=== PATIENT | female | born 1975 | race African-American/Black ===

== ENCOUNTER 2016-05-12 14:20 | Emergency (ER) | payer OTHER ==
--- NOTE | ~2016-05-12 | CO ---
Unit #: [id number] #: [id number] Patient: [id number] [address] [address] [id number] MR#: [id number] NAME: JOSEJune. ROOM: Age: 40 Sex: F Admission Date: 05/12/2016 : 1975 Attending Physician: Indu Felix M.D. CONSULTATION REPORT HISTORY OF PRESENT ILLNESS A 40-year-old female with 2-day history of sharp, constant right-sided abdominal pain with associated nausea. No emesis. No gross hematuria. No dysuria. History of UTIs in the past, but none recently. No history of stone disease, bone pain, weight loss, or tobacco use. CT without contrast; questionable hemorrhagic cyst. PAST MEDICAL HISTORY As above. PAST SURGICAL HISTORY x2, tubal ligation, endometrial ablation. ALLERGIES No known drug allergies. MEDICATIONS Nothing regularly. SOCIAL HISTORY Occasional alcohol. No recreational drugs or tobacco. FAMILY HISTORY Ovarian cancer. REVIEW OF SYSTEMS The patient denies headache, vision change, hearing change, cough, sore throat, chest pain, or shortness of breath. Denies diarrhea, constipation, numbness or tingling in the extremities, rashes, or easy bruising. PHYSICAL EXAMINATION VITAL SIGNS: Temperature 98.6, respirations 16, pulse 54, blood pressure 146/79. GENERAL: In mild distress. HEENT: Normocephalic, atraumatic. Extraocular muscles intact grossly. NECK: Soft, supple. No supraclavicular lymphadenopathy. RESPIRATORY: Normal respiratory effort. Normal to palpation. ABDOMEN: Soft. Tender to palpation on the right side diffusely. No peritoneal signs. No CVA tenderness. EXTREMITIES: Full range of motion. No edema in bilateral lower extremities. PSYCHIATRIC: Mild distress. NEUROLOGIC: Cranial nerves II through XII grossly intact. Unit #: [id number] #: [id number] Patient: JOSE DIAGNOSTIC STUDIES LABORATORY RESULTS: Reveals creatinine 0.6. White blood cell count 12.7, hemoglobin 13.3. Urinalysis; 50 to 100 red blood cells per high-power field, 0 to 2 white blood cells per high-power field, negative bacteria. ASSESSMENT AND PLAN Renal mass, right; flank pain, right; microhematuria. Recommend contrast CAT scan. Recommendations to follow. We will need eventual cystoscopy given microhematuria. Dictated by... Jaren Lay/enrique TD: 05/13/2016 08:11 JOB #: [id number] CONSULTATION REPORT X Kush Goldsmith MD X CONSULTATION REPORT
--- NOTE | ~2016-05-12 | CT2 ---
[facility] A Service of [facility] RADIOLOGY TEXT RESULTS PATIENT: JOSE LOCATION: [facility] : [birth year] UNIT #: [id number] AGE: [address]: Indu Felix MD SEX: F ORDER DR: [id number] [facility] [address] [place], [place] [address] [id number] E MR#: [id number] Acc #: [id number] NAME: JOSE June. : 1975 SEX: F STUDY DATE/TIME: 05/12/2016 17:33 UNIT: [facility] ROOM: STUDY DESCRIPTION: CT Abd and Pelv W Cont Attending Physician: Indu Felix M.D. Ordering Physician: Indu Felix M.D. Primary Care Physician: Primary Care Physician No MEDICAL IMAGING REPORT This report is preliminary unless electronic signature is present EXAM CT abdomen and pelvis with contrast, 05/12/2016 HISTORY 40-year-old female with abdominal pain and nausea x1 day, pain radiating to right side of back. COMPARISON CT abdomen and pelvis without contrast 05/12/2016 obtained at [address] exam was performed with one or more of the following radiation dose reduction techniques: automatic exposure control, adjustment of mA and/or kV according to patient size, and iterative reconstruction. FINDINGS Axial images performed through the abdomen and pelvis following IV contrast. Multiplanar reconstructed images reviewed at a workstation. ABDOMEN: Lung bases unremarkable except for minimal atelectasis. The liver, spleen, gallbladder, pancreas and adrenal glands are unremarkable. There is a 6.4 cm low-attenuation lesion on the right kidney which demonstrates areas of increased attenuation most compatible with hemorrhage within a right renal cyst. No enhancing components are identified to suggest a solid tumor. There is probable a small right renal cortical cysts and a small cortical cyst lower pole right kidney. The left kidney also demonstrates a small cyst. No hydronephrosis. Retroperitoneum unremarkable. GI tract appears normal. PELVIS: Bladder, uterus, and adnexa appear normal. Osseous structures and soft tissues appear normal. [facility] A Service of [facility] RADIOLOGY TEXT RESULTS PATIENT: JOSE [id number] : [birth year] UNIT #: [id number] AGE: [address]: Indu Felix MD SEX: F ORDER DR: IMPRESSION A 6.5 cm right renal cortical cyst with areas of increased attenuation within the cyst most likely reflecting acute hemorrhage. No solid components are identified to suggest a solid renal neoplasm. There are also multiple bilateral renal cysts. Dictated by... Yenny Everett M.D. THIS IS AN ELECTRONICALLY VERIFIED REPORT Yenny Everett M.D. at 05/13/2016 5:04 PM RADHA/brian TD: 05/13/2016 04:39 JOB #: [id number] MEDICAL IMAGING REPORT COPY
--- NOTE | ~2016-05-12 | CT4 ---
[facility] A Service of [facility] RADIOLOGY TEXT RESULTS PATIENT: JOSE LOCATION: [facility] : [birth year] UNIT #: [id number] AGE: [address]: Indu Felix MD SEX: F ORDER DR: [id number] [facility] [address] [place], [place] [address] [id number] E MR#: [id number] Acc #: [id number] NAME: JOSE June. : 1975 SEX: F STUDY DATE/TIME: 05/12/2016 15:11 UNIT: [facility] ROOM: STUDY DESCRIPTION: CT Abd and Pelv Wo Cont Attending Physician: Indu Felix M.D. Ordering Physician: Indu Felix M.D. Primary Care Physician: Primary Care Physician No MEDICAL IMAGING REPORT This report is preliminary unless electronic signature is present EXAM CT abdomen and pelvis without contrast, 05/12/2016 HISTORY Abdominal pain and nausea x1 day, pain radiating to right side. TECHNIQUE This CT exam was performed with one or more of the following radiation dose reduction techniques: automatic exposure control, adjustment of mA and/or kV according to patient size, and iterative reconstruction. FINDINGS Axial images performed through the abdomen and pelvis without contrast. Multiplanar reconstructed images were reviewed at a workstation. ABDOMEN: Lung bases unremarkable. Liver, spleen and gallbladder appear normal. There is a round complex mass in the upper pole of the right kidney measuring 6.4 cm x 6.4 cm x 6.5 cm. This is predominately hypodense relative to renal parenchyma but does demonstrate areas of increased attenuation compatible with acute hemorrhage. This most likely represents a hemorrhagic cyst within the right kidney, however urologic follow up and evaluation is recommended to exclude and underlying mass lesion. There are additional punctate calcifications in the right kidney with a subtle area decreased attenuation in the mid polar region of the right kidney. No hydronephrosis. No perinephric fluid collection identified. The left kidney unremarkable except for a small parenchymal hypodensity probably represents a cyst measuring about 1.8 cm. Retroperitoneum unremarkable. Visualized GI tract to include the appendix normal. PELVIS: Bladder, uterus and adnexa appear normal. Tubal ligation clips noted. Osseous structures and soft tissues appear normal. [facility] A Service of [facility] RADIOLOGY TEXT RESULTS PATIENT: JOSEJune LOCATION: [facility] : 73 UNIT #: [id number] AGE: [address]: Indu Felix MD SEX: F ORDER DR: IMPRESSION 1. Approximately 6.5 cm round mass within the upper pole of the right kidney which shows areas of increased attenuation compatible with acute hemorrhage. Imaging features most compatible with an acute hemorrhagic cyst however a solid neoplasm cannot be excluded and further urologic followup and evaluation is recommended. No intraperitoneal fluid and no extension of hemorrhage into the retroperitoneal structures or perinephric region. 2. Additional low-attenuation lesion seen within the right and left kidneys also most likely represent small cysts. Dictated by... Yenny Everett M.D. THIS IS AN ELECTRONICALLY VERIFIED REPORT Yenny Everett M.D. at 05/13/2016 5:02 PM RADHA/brian TD: 05/13/2016 00:11 JOB #: [id number] MEDICAL IMAGING REPORT COPY
[2016-05-12 13:20] LABS: BASOPHIL% 0.2 % (0-2.5); EOSINOPHIL% 0.3 % (0.0-7.0); HEMATOCRIT 39.6 % (35.0-45.0); HEMOGLOBIN 13.3 gm/dL (12.0-16.0); LYMPHOCYTE# 1.1 X10e3 (1.0-3.5); LYMPHOCYTE% 8.6 % (17.0-45.0); MEAN CELL VOLUME 91.2 FL (83-96); MEAN CORPUSCULAR HEMOGLOBIN 30.6 PG (28-34); MEAN CORPUSCULAR HGB CONC 33.6 g/dL (30-36); MEAN PLATELET VOLUME 7.8 FL (6.5-11.5); MONOCYTE# 0.6 X10e3 (0-1.0); MONOCYTE% 5.1 % (3.0-12.0); NEUTROPHIL# 10.9 X10e3 (1.5-7.1); NEUTROPHIL% 85.8 % (40-75); PLATELET COUNT 371 X10e3 (140-420); RED BLOOD COUNT 4.34 X10e (3.90-5.30); RED CELL DISTRIBUTION WIDTH 13.1 % (11.0-15.5); WHITE BLOOD COUNT 12.7 X10e3 (4.0-10.5)
[2016-05-12 13:21] LABS: DIFF IND NO
[2016-05-12 13:45] LABS: ALBUMIN SERUM 4.3 g/dL (3.5-5.0); ALKALINE PHOSPHATASE 37 U/L (32-92); ALT (SGPT) 15 U/L (10-40); AST (SGOT) 19 U/L (10-42); BILIRUBIN, DIRECT 0.1 mg/dL (0.0-0.2); BILIRUBIN,INDIRECT 0.4 mg/dL (0.0-0.9); BILIRUBIN,TOTAL 0.5 mg/dL (0.2-2.0); BLOOD UREA NITROGEN 7 mg/dL (9-23); BUN/CREATININE RATIO 11.66; CALCIUM SERUM 9.2 mg/dL (8.4-10.2); CARBON DIOXIDE 27 mmol/L (22-31); CHLORIDE 101 mmol/L (100-111); CREATININE SERUM 0.6 mg/dL (0.6-1.4); GLOM FILT RATE Estimated ABOVE60 mL/min (>60); GLUCOSE FASTING 120 mg/dL (70-110); LIPASE 19 U/L (22-51); POTASSIUM 3.7 mmol/L (3.5-5.1); PROTEIN TOTAL SERUM 7.3 g/dL (6.0-8.3); SODIUM 136 mmol/L (135-145)
[~2016-05-12 14:20] MED LIST: BACTRIM DS TABL1 TAB PO; DARVOCET-N 1001 TAB PO; FLAGYL PO; FLEXERIL PO; IBUPROFEN PO; KEFLEX PO; NAPROXEN PO; NORCO 5/325 TAB1 TAB PO; ORUDIS75 M1 PO; VICODIN 5/500 T1 TAB PO
[2016-05-12 14:54] LABS: URINE SOURCE CLEAN CATCH
[2016-05-12 14:59] LABS: URINE APPEARANCE CLEAR; URINE BILIRUBIN NEG (NEG); URINE BLOOD 3+ (NEG); URINE COLOR YELLOW; URINE GLUCOSE NEG (NEG); URINE KETONE NEG (NEG); URINE LEUKOCYTE ESTERASE NEG (NEG); URINE NITRATE NEG (NEG); URINE PH 6.5 (5-8); URINE PROTEIN TRACE (NEG); URINE SPECIFIC GRAVITY 1.013 (1.003-1.035); URINE UROBILINOGEN 0.2 MG/DL (NEG)
[2016-05-12 15:01] LABS: URBCS1 AUWI 50-100 /[HPF] (0-2); URINE BACTERIA AUWI NEG (NEGATIVE); URINE SQUAMOUS EPITHELIAL CELL OCC /[HPF]; UWBCS1 AUWI 0-2 (0-5)
[2016-05-12 15:02] LABS: CULTURE INDICATED? NO
[2016-05-16 20:31] LABS: CHLAMYDIA TRACH Not Detected (Not Detected); N GONOR Not Detected (Not Detected)
== END 2016-05-12 19:45 | disposition home or self-care (01) ==
LOC: CED 14:20
PROVIDERS: Emergency Medicine
DX: N28.1 Cyst of kidney, acquired (principal); R10.2 Pelvic and perineal pain; F17.200 Nicotine dependence, unspecified, uncomplicated
CPT/HCPCS: 36415; 74176; 74177; 80048; 80076; 81003; 83690; 85025; 87491; 87591; 87905; 96361; 96374; 96375; 96376; 99284; J0696; J1170; J2405; Q9967

== ENCOUNTER 2016-05-14 11:10 | Inpatient (IN) | payer OTHER ==
--- NOTE | ~2016-05-14 | MR2 ---
[facility] A Service of [facility] RADIOLOGY TEXT RESULTS PATIENT: JOSE LOCATION: [facility] [id number] : 73 UNIT #: [id number] AGE: [address]: Seun Ramos MD SEX: F ORDER DR: [id number] [address] [facility] [place], [place] [address] [id number] I MR#: [id number] Acc #: [id number] NAME: JOSE June. : 1975 SEX: F STUDY DATE/TIME: 05/15/2016 12:10 UNIT: [facility] ROOM: [facility] STUDY DESCRIPTION: MR Abdomen WWo Cont Attending Physician: Seun Ramos M.D. Ordering Physician: Seun Ramos M.D. Primary Care Physician: No Primary Care Physician MRI CENTER REPORT This report is preliminary unless electronic signature is present. EXAM MRI abdomen with and without contrast INDICATIONS Indeterminate right renal mass on recent CT. PROCEDURE Multiplanar, multisequence MR imaging of the abdomen prior to and following 19 mL of MultiHance. COMPARISON CT from 05/12/2016 FINDINGS Liver measures 20.7 cm. No significant hepatic fat or iron deposition. The spleen adrenal glands gallbladder biliary system bowel loops have normal signal. There is a 5 mm cyst in the head of the pancreas. Pancreas otherwise has normal signal. ABDOMEN WITH CONTRAST: A complex cystic lesion in the upper pole of the right kidney measures approximately 5.5 cm. It shows a few internal septations that are thin. It does show internal hemorrhage or proteinaceous material. No suspicious internal enhancing elements. There are other cysts in both kidneys, that are simple in appearance. No abnormal enhancement is seen elsewhere in the abdomen. The small pancreatic cyst shows no enhancement. IMPRESSION 1. A complex cyst in the upper pole of the right kidney has a few thin enhancing septations and proteinaceous or hemorrhagic internal material. No suspicious enhancing elements. Most in keeping with a [facility] A Service [facility] RADIOLOGY TEXT RESULTS PATIENT: JOSE LOCATION: [facility] : 73 UNIT #: [id number] AGE: [address]: Seun Ramos MD SEX: F ORDER DR: complex proteinaceous or hemorrhagic cyst. Given the internal complexity a followup in 6 months, may be beneficial. 2. Other benign simple cysts are seen in both kidneys. 3. A 5 mm, probably benign cyst in the head of the pancreas. Per the ACR white paper on incidental findings, recommend a followup MRCP in 12 months. If it is stable at that time no additional followup is required. 4. Hepatomegaly Dictated by... Lenin Saiin M.D. THIS IS AN ELECTRONICALLY VERIFIED REPORT Lenin Saini M.D. at 05/15/2016 5:05 PM ANKUR/reuben TD: 05/15/2016 15:20 JOB #: [id number] MRI CENTER REPORT COPY
--- NOTE | ~2016-05-14 | DS ---
Unit #: [id number] #: [id number] Patient: JOSEJune [id number] [address] [address] [id number] I MR#: [id number] NAME: SWATI GARCIA. ROOM: 467 Age: 40 Sex: F Admission Date: 05/14/2016 : 1975 Discharge Date: 05/25/2016 Attending Physician: Seun Ramos M.D. DISCHARGE SUMMARY ADMITTING DIAGNOSES 1. Gross hematuria. 2. Right renal mass. DISCHARGE DIAGNOSES 1. Gross hematuria. 2. Right renal mass, status post right radical nephrectomy. ADMITTING INFORMATION The patient is a pleasant female who presented to my office with gross hematuria. She was admitted for further management. HOSPITAL COURSE The patient was admitted. She emergently underwent cystoscopy and right ureteroscopy. She was found to be hemorrhaging into her right kidney. She was placed on continuous bladder irrigation. She underwent further imaging of her kidney over the next couple of days, which showed it to be a right hemorrhagic cyst, but it was ultimately an indeterminate complex mass. She ultimately underwent a right radical nephrectomy, which she tolerated well. Her right radical nephrectomy was on 05/21/2016. Her postoperative course from this was unremarkable. Her catheter was removed. Her diet was advanced. Her pain was controlled. She was discharged home. She will follow up in 10 to 14 days for staple removal. Dictated by... Jaren Muniz/enrique TD: 06/08/2016 03:29 JOB #: [id number] DISCHARGE SUMMARY Page 1 of 1 X Seun Ramos MD X DISCHARGE SUMMARY
--- NOTE | ~2016-05-14 | CR63 ---
[facility] A Service of [facility] RADIOLOGY TEXT RESULTS PATIENT: JOSE LOCATION: [place] [address] : [birth year] UNIT #: [id number] AGE: [address]: Seun Ramos MD SEX: F ORDER DR: [id number] [facility] [address] [place], [place] [address] [id number] I MR#: [id number] Acc #: [id number] NAME: JOSEJune : 1975 SEX: F STUDY DATE/TIME: 05/14/2016 18:30 UNIT: [facility] ROOM: [facility] STUDY DESCRIPTION: CR Chest 2 View Attending Physician: Seun Ramos M.D. Ordering Physician: Seun Ramos M.D. Primary Care Physician: Primary Care Physician No MEDICAL IMAGING REPORT This report is preliminary unless electronic signature is present EXAM Chest 2 views COMPARISON April 18, 2016 and April 24, 2015. INDICATION 40-year-old female. Preoperative respiratory exam prior to right nephrectomy for renal mass in 2 days. FINDINGS No evidence of pneumothorax, pleural effusion or acute airspace disease. No evidence of pulmonary mass. IMPRESSION No acute radiographic abnormality. Dictated by... Moustapha Gutierrez M.D. THIS IS AN ELECTRONICALLY VERIFIED REPORT Moustapha Gutierrez M.D. at 05/17/2016 7:20 AM ROBERT/luli TD: 05/15/2016 06:50 JOB #: [id number] MEDICAL IMAGING REPORT COPY
--- NOTE | ~2016-05-14 | HP ---
Unit #: [id number] #: [id number] Patient: JOSEJune [id number] [address] [place], [place] [address] [id number] O MR#: [id number] NAME: SWATI GARCIA. ROOM: Age: 40 Sex: F Admission Date: 05/14/2016 : 1975 Attending Physician: Seun Ramos M.D. Primary Care Physician: No Primary Care Physician HISTORY AND PHYSICAL REASONS FOR ADMISSION 1. Right renal mass. 2. Gross hematuria. HISTORY OF PRESENT ILLNESS The patient is a 40-year-old female who presented to my office with a four day history of right-sided abdominal pain with nausea. She was seen in the ER over the weekend and underwent a CT of the abdomen and pelvis without contrast followed by one with contrast but not a true renal protocol CT, which was thought to be most likely consistent with a hemorrhagic cyst. She was discharged but she began having gross hematuria yesterday. She presented to my office for gross hematuria today. PAST MEDICAL HISTORY Essentially negative. PAST SURGICAL HISTORY x2, bilateral tubal ligation, endometrial ablation. SOCIAL HISTORY Negative for tobacco. Negative for drugs. Rare alcohol. FAMILY HISTORY Positive for ovarian cancer. MEDICATIONS AND ALLERGIES Documented in the chart. REVIEW OF SYSTEMS Positive for right flank pain. Positive for gross hematuria. Negative for fever. Negative for chills. PHYSICAL EXAMINATION HEENT: Normocephalic, atraumatic. The patient is breathing comfortably. ABDOMEN: Soft, nontender, nondistended. No clubbing, cyanosis or edema. DIAGNOSTIC STUDIES Labs are pending. ASSESSMENT AND PLAN Right renal mass with gross hematuria. Urine culture will be sent. She is going to undergo a cystoscopy and right retrograde pyelogram today. I have reviewed the films with Radiology and this is an indeterminate mass but the gross hematuria does raise her index of suspicion. We will likely Unit #: [id number] #: [id number] Patient: JOSESWATI Tello need to do a renal protocol MRI. We will do a cystoscopy and retrograde today. The risks, benefits and alternatives including bleeding, infection, damage to adjacent structures, need for further surgery as well as risk of anesthesia were explained to the patient. She understands that if we see any abnormalities in her bladder, we will do a bladder biopsy or a transurethral resection of bladder tumor. Dictated by Jaren Muniz/sharon TD: 05/14/2016 12:15 JOB #: [id number] HISTORY AND PHYSICAL X Seun Ramos MD X HISTORY AND PHYSICAL
--- NOTE | ~2016-05-14 | OR ---
Unit #: [id number] #: [id number] Patient: JOSE [id number] [address] [place], [place] [address] [id number] I MR#: [id number] NAME: JOSE June. ROOM: 467 Date of Procedure: Admission Date: 05/14/2016 Surgeon: Seun Ramos M.D. : 1975 [employer]mediate School Teacher(s): Marylu Kong CFA Attending Physician: Seun Ramos M.D. Primary Care Physician: No Primary Care Physician PROCEDURE OPERATIVE NOTE PREOPERATIVE DIAGNOSIS Right renal mass. POSTOPERATIVE DIAGNOSIS Right renal mass. PROCEDURE PERFORMED Right radical nephrectomy. SURGEON Seun Ramos M.D. CORE SETTER Marylu Kong CFA ANESTHESIA General. INDICATIONS FOR PROCEDURE Ms. Melgoza is a pleasant 40-year-old female with a right renal mass who presented with gross hematuria. She has underwent ureteroscopy which showed bleeding from the right kidney. The mass has been described as a Bosniak 2F cyst. The patient understands that this may not be a malignancy and, in fact, that the likelihood of malignancy is less than 50%. The patient is having persistent pain and hematuria and we also have limited ability to follow this. The risks, benefits, alternatives including bleeding, infection, damage to adjacent structures, need for further surgery as well as the risk of anesthesia were explained to the patient and informed consent was obtained. She wished to proceed. DESCRIPTION OF PROCEDURE The patient was taken to the operative suite and properly identified. After the application of satisfactory general anesthetic, the patient was placed in the supine position with a right flank bump. Her abdomen and flank were prepped and draped in the usual sterile fashion and a right subcostal incision with Bovie electrocauterization was used to carry this down to the fascia. The fascia was opened, the peritoneum was sharply opened. A Bookwalter self-retaining retractor was placed. There were some adhesions all along the liver and gallbladder which we took down sharply. The right colon was mobilized along the white line of Toldt. A Tasneem maneuver was performed exposing the inferior vena cava. We first dissected the lower pole of the kidney. We dissected up the inferior vena Unit #: [id number] #: [id number] Patient: JOSE,SWATI F cava. We identified the renal vein which bifurcated early as well as the renal artery, identified the adrenal and dissected this off the upper pole of the kidney. Care was taken to make sure that we did not enter the cystic mass. The kidney was mobilized completely from the upper pole laterally. I divided the pedicle using a vascular DICK stapler. The ureter was divided, the stent was removed. The ureter was clipped. I passed the kidney off the table as a specimen. The wound was copiously irrigated. FloSeal and Surgicel were placed in the operative bed. Hemostasis was excellent. We turned our attention to closing. The fascia was closed in two layers. The deep layer was closed with a #1 Vicryl running stitch x2. The external layer was closed using #1 Vicryl interrupted [id number] sutures. The wound was copiously irrigated. The skin was closed with jud. Sterile dressing was applied. Estimated blood loss was 50 mL. The patient tolerated the procedure well without complications. Dictated by... Jaren Muniz/morales TD: 05/22/2016 12:45 JOB #: [id number] PROCEDURE OPERATIVE NOTE X Seun Ramos MD X PROCEDURE OPERATIVE NOTE
--- NOTE | ~2016-05-14 | OR ---
Unit #: [id number] #: [id number] Patient: JOSEJune [id number] [address] [place], [place] [address] [id number] O MR#: [id number] NAME: SWATI GARCIA. ROOM: Date of Procedure: 05/14/2016 Admission Date: 05/14/2016 Surgeon: Seun Ramos M.D. : 1975 Attending Physician: Seun Ramos M.D. PROCEDURE OPERATIVE NOTE PREOPERATIVE DIAGNOSES 1. Right renal mass. 2. Gross hematuria. POSTOPERATIVE DIAGNOSES 1. Right renal mass. 2. Gross hematuria. PROCEDURES PERFORMED 1. Cystoscopy. 2. Right retrograde pyelogram. 3. Interpretation of right retrograde pyelogram. 4. Right ureteroscopy. 5. Right 7-Ugandan x 26 cm double-J stent placement, no string attached. ANESTHESIA General. INDICATIONS FOR PROCEDURE Mrs. Garcia is a pleasant 40-year-old female who presented originally with right flank pain two days ago to the emergency room. She underwent separate CT scans of the abdomen and pelvis without and with IV contrast which were read as a proteinaceous or hemorrhagic cyst, although I do have some concern that this may be a cystic renal cellular carcinoma. She developed gross hematuria yesterday. She presented to my office today, and I admitted her for the above procedure. The risks, benefits, and alternatives including bleeding, infection, damage to adjacent structures, and need for surgery, as well as the risk of anesthesia were explained to the patient. Informed consent was obtained, and she wished to proceed. DESCRIPTION OF PROCEDURE Patient was taken to the operative suite and properly identified. After the application of satisfactory general anesthetic, the patient was placed in the dorsal lithotomy position. Her genitalia were prepped and draped in the usual sterile fashion. I introduced the rigid 22-Ugandan cystoscope. The bladder had no tumors, stones, or masses. There was a single ureteral orifice on each side, but there was bloody efflux from the right ureteral orifice. I passed a Pollack catheter. I shot a right retrograde pyelogram and the interpretations were as follows: There was a single collecting system. There was compression on the right upper pole from what appeared to be the renal mass, and there was extravasation into this. There were no other filling defects in the Unit #: [id number] #: [id number] Patient: GARCIA collecting system. I passed a sensor wire, and I passed a flexible ureteroscope over the wire. Upon entering the kidney, there was blood throughout the kidney, and there was really no visibility at all. I (1) ureter, and the entire ureter was normal. I replaced the wire. I passed a 7-Ugandan x 26 cm double-J stent which coiled in the renal pelvis and the bladder. No string was attached. The bladder was emptied, and the scope was removed. I passed a 22-Ugandan 3-way catheter with continuous bladder irrigation planned. She will undergo an MRI of her kidney tomorrow. I think she is ultimately going to require a right radical nephrectomy. She may require embolization as well if we are not able to control her bleeding. Dictated by... Jaren Muniz/frankie TD: 05/14/2016 14:32 JOB #: [id number] PROCEDURE OPERATIVE NOTE X Seun Ramos MD X PROCEDURE OPERATIVE NOTE
[2016-05-14] MEDS ORDERED: HYDROCODON-ACE1 EAC7 PO (12:34)
[2016-05-14] MEDS ORDERED: MORGIDOX100 MG PO (12:35)
[2016-05-14] MEDS ORDERED: IBUPROFEN800 MG PO (12:36)
[2016-05-14] MEDS ORDERED: ONDANSETRON ODT4 MG SL (12:37)
[2016-05-14] MEDS ORDERED: GARCINIA CAMBO1 EACH PO (12:38)
[2016-05-14 14:43] LABS: BASOPHIL# 0.1 X10e3 (0-0.3); BASOPHIL% 1.2 % (0-2.5); EOSINOPHIL# 0.2 X10e3 (0-0.7); EOSINOPHIL% 2.5 % (0.0-7.0); HEMATOCRIT 37.5 % (35.0-45.0); HEMOGLOBIN 12.6 gm/dL (12.0-16.0); LYMPHOCYTE# 1.4 X10e3 (1.0-3.5); LYMPHOCYTE% 21.8 % (17.0-45.0); MEAN CORPUSCULAR HEMOGLOBIN 30.8 PG (28-34); MEAN CORPUSCULAR HGB CONC 33.5 g/dL (30-36); MONOCYTE# 0.6 X10e3 (0-1.0); MONOCYTE% 8.7 % (3.0-12.0); NEUTROPHIL# 4.2 X10e3 (1.5-7.1); NEUTROPHIL% 65.8 % (40-75); PLATELET COUNT 325 X10e3 (140-420); RED BLOOD COUNT 4.08 X10e (3.90-5.30); WHITE BLOOD COUNT 6.3 X10e3 (4.0-10.5)
[2016-05-14 14:46] LABS: DIFF IND NO
[2016-05-14 15:06] LABS: BLOOD UREA NITROGEN 7 mg/dL (9-23); CALCIUM SERUM 8.7 mg/dL (8.4-10.2); CARBON DIOXIDE 29 mmol/L (22-31); CHLORIDE 103 mmol/L (100-111); CREATININE SERUM 0.7 mg/dL (0.6-1.4); GLOM FILT RATE Estimated ABOVE60 mL/min (>60); GLUCOSE FASTING 93 mg/dL (70-110); SODIUM 137 mmol/L (135-145)
[2016-05-15 03:57] LABS: BASOPHIL% 0.3 % (0-2.5); EOSINOPHIL% 0.1 % (0.0-7.0); HEMOGLOBIN 12.3 gm/dL (12.0-16.0); LYMPHOCYTE# 0.9 X10e3 (1.0-3.5); LYMPHOCYTE% 10.2 % (17.0-45.0); MEAN CELL VOLUME 91.6 FL (83-96); MEAN CORPUSCULAR HEMOGLOBIN 30.5 PG (28-34); MEAN CORPUSCULAR HGB CONC 33.3 g/dL (30-36); MEAN PLATELET VOLUME 8.3 FL (6.5-11.5); MONOCYTE# 0.5 X10e3 (0-1.0); MONOCYTE% 5.1 % (3.0-12.0); NEUTROPHIL# 7.5 X10e3 (1.5-7.1); NEUTROPHIL% 84.3 % (40-75); PLATELET COUNT 353 X10e3 (140-420); RED BLOOD COUNT 4.04 X10e (3.90-5.30); RED CELL DISTRIBUTION WIDTH 13.1 % (11.0-15.5); WHITE BLOOD COUNT 8.9 X10e3 (4.0-10.5)
[2016-05-15 03:58] LABS: DIFF IND NO
[2016-05-15 04:24] LABS: BLOOD UREA NITROGEN 7 mg/dL (9-23); CALCIUM SERUM 8.9 mg/dL (8.4-10.2); CARBON DIOXIDE 25 mmol/L (22-31); CHLORIDE 105 mmol/L (100-111); CREATININE SERUM 0.7 mg/dL (0.6-1.4); GLOM FILT RATE Estimated ABOVE60 mL/min (>60); GLUCOSE FASTING 94 mg/dL (70-110); POTASSIUM 3.9 mmol/L (3.5-5.1); SODIUM 139 mmol/L (135-145)
[2016-05-18 03:38] LABS: HEMATOCRIT 37.6 % (35.0-45.0); HEMOGLOBIN 12.8 gm/dL (12.0-16.0); MEAN CELL VOLUME 90.9 FL (83-96); MEAN CORPUSCULAR HGB CONC 34.1 g/dL (30-36); MEAN PLATELET VOLUME 8.3 FL (6.5-11.5); RED BLOOD COUNT 4.13 X10e (3.90-5.30); RED CELL DISTRIBUTION WIDTH 13.3 % (11.0-15.5); WHITE BLOOD COUNT 8.1 X10e3 (4.0-10.5)
[2016-05-18 04:06] LABS: BLOOD UREA NITROGEN 9 mg/dL (9-23); CALCIUM SERUM 8.9 mg/dL (8.4-10.2); CARBON DIOXIDE 25 mmol/L (22-31); CHLORIDE 103 mmol/L (100-111); CREATININE SERUM 0.6 mg/dL (0.6-1.4); GLOM FILT RATE Estimated ABOVE60 mL/min (>60); GLUCOSE FASTING 83 mg/dL (70-110); POTASSIUM 3.9 mmol/L (3.5-5.1); SODIUM 135 mmol/L (135-145)
[2016-05-21 02:23] LABS: HEMATOCRIT 42.4 % (35.0-45.0); HEMOGLOBIN 14.3 gm/dL (12.0-16.0); MEAN CELL VOLUME 91.2 FL (83-96); MEAN CORPUSCULAR HEMOGLOBIN 30.7 PG (28-34); MEAN CORPUSCULAR HGB CONC 33.7 g/dL (30-36); RED BLOOD COUNT 4.65 X10e (3.90-5.30); RED CELL DISTRIBUTION WIDTH 13.2 % (11.0-15.5); WHITE BLOOD COUNT 8.6 X10e3 (4.0-10.5)
[2016-05-21 02:45] LABS: BLOOD UREA NITROGEN 5 mg/dL (9-23); BUN/CREATININE RATIO 8.33; CALCIUM SERUM 9.2 mg/dL (8.4-10.2); CARBON DIOXIDE 25 mmol/L (22-31); CHLORIDE 103 mmol/L (100-111); CREATININE SERUM 0.6 mg/dL (0.6-1.4); GLOM FILT RATE Estimated ABOVE60 mL/min (>60); GLUCOSE FASTING 110 mg/dL (70-110); MAGNESIUM 2.1 mg/dL (1.6-3.0); POTASSIUM 3.8 mmol/L (3.5-5.1); SODIUM 137 mmol/L (135-145)
[2016-05-22 05:48] LABS: BASOPHIL% 0.2 % (0-2.5); HEMATOCRIT 38.5 % (35.0-45.0); HEMOGLOBIN 12.6 gm/dL (12.0-16.0); LYMPHOCYTE# 0.8 X10e3 (1.0-3.5); LYMPHOCYTE% 6.2 % (17.0-45.0); MEAN CELL VOLUME 91.8 FL (83-96); MEAN CORPUSCULAR HEMOGLOBIN 29.9 PG (28-34); MEAN CORPUSCULAR HGB CONC 32.6 g/dL (30-36); MEAN PLATELET VOLUME 7.9 FL (6.5-11.5); MONOCYTE# 1.1 X10e3 (0-1.0); MONOCYTE% 8.4 % (3.0-12.0); NEUTROPHIL# 11.5 X10e3 (1.5-7.1); NEUTROPHIL% 85.2 % (40-75); PLATELET COUNT 416 X10e3 (140-420); RED CELL DISTRIBUTION WIDTH 13.1 % (11.0-15.5)
[2016-05-22 05:55] LABS: WHITE BLOOD COUNT 13.5 X10e3 (4.0-10.5)
[2016-05-22 05:56] LABS: DIFF IND NO
[2016-05-22 07:09] LABS: BLOOD UREA NITROGEN 8 mg/dL (9-23); BUN/CREATININE RATIO 7.27; CALCIUM SERUM 9.4 mg/dL (8.4-10.2); CARBON DIOXIDE 25 mmol/L (22-31); CHLORIDE 103 mmol/L (100-111); CREATININE SERUM 1.1 mg/dL (0.6-1.4); GLOM FILT RATE Estimated ABOVE60 mL/min (>60); GLUCOSE FASTING 115 mg/dL (70-110); SODIUM 139 mmol/L (135-145)
[2016-05-22 07:29] LABS: POTASSIUM 5.7 mmol/L (3.5-5.1)
[2016-05-22 15:16] LABS: BLOOD UREA NITROGEN 7 mg/dL (9-23); BUN/CREATININE RATIO 5.83; CALCIUM SERUM 8.5 mg/dL (8.4-10.2); CARBON DIOXIDE 25 mmol/L (22-31); CHLORIDE 103 mmol/L (100-111); CREATININE SERUM 1.2 mg/dL (0.6-1.4); GLOM FILT RATE Estimated ABOVE60 mL/min (>60); GLUCOSE FASTING 111 mg/dL (70-110); POTASSIUM 4.2 mmol/L (3.5-5.1); SODIUM 133 mmol/L (135-145)
[2016-05-23 03:07] LABS: HEMATOCRIT 34.9 % (35.0-45.0); HEMOGLOBIN 11.4 gm/dL (12.0-16.0); MEAN CELL VOLUME 92.1 FL (83-96); MEAN CORPUSCULAR HEMOGLOBIN 30.2 PG (28-34); MEAN CORPUSCULAR HGB CONC 32.8 g/dL (30-36); MEAN PLATELET VOLUME 7.6 FL (6.5-11.5); RED BLOOD COUNT 3.79 X10e (3.90-5.30); RED CELL DISTRIBUTION WIDTH 13.1 % (11.0-15.5); WHITE BLOOD COUNT 8.8 X10e3 (4.0-10.5)
[2016-05-23 03:35] LABS: BUN/CREATININE RATIO 5.38; CALCIUM SERUM 8.5 mg/dL (8.4-10.2); CREATININE SERUM 1.3 mg/dL (0.6-1.4); GLOM FILT RATE Estimated 58.1 mL/min (>60); POTASSIUM 3.7 mmol/L (3.5-5.1)
[2016-05-24 03:02] LABS: HEMATOCRIT 32.2 % (35.0-45.0); HEMOGLOBIN 10.8 gm/dL (12.0-16.0); MEAN CELL VOLUME 91.1 FL (83-96); MEAN CORPUSCULAR HEMOGLOBIN 30.7 PG (28-34); MEAN CORPUSCULAR HGB CONC 33.7 g/dL (30-36); MEAN PLATELET VOLUME 7.7 FL (6.5-11.5); RED BLOOD COUNT 3.53 X10e (3.90-5.30); WHITE BLOOD COUNT 8.3 X10e3 (4.0-10.5)
[2016-05-24 03:31] LABS: BLOOD UREA NITROGEN 9 mg/dL (9-23); BUN/CREATININE RATIO 8.18; CALCIUM SERUM 8.4 mg/dL (8.4-10.2); CARBON DIOXIDE 22 mmol/L (22-31); CHLORIDE 104 mmol/L (100-111); CREATININE SERUM 1.1 mg/dL (0.6-1.4); GLOM FILT RATE Estimated ABOVE60 mL/min (>60); GLUCOSE FASTING 99 mg/dL (70-110); POTASSIUM 4.1 mmol/L (3.5-5.1); SODIUM 133 mmol/L (135-145)
[2016-05-25] MEDS ORDERED: DOCUSATE SODIU100 MG PO (11:47)
== END 2016-05-25 13:30 | disposition home or self-care (01) | DRG 661 ==
LOC: CSUR 11:10 → CPACUOF 14:25 → C4C 15:35
PROVIDERS: Urology
PROC: BT1DYZZ Fluoroscopy of Right Kidney, Ureter and Bladder using Other Contrast (ICD-10-PCS; principal; 2016-05-14 18:00)
PROC: 0T768DZ Dilation of Right Ureter with Intraluminal Device, Via Natural or Artificial Opening Endoscopic (ICD-10-PCS; 2016-05-14 18:00)
PROC: 0TT00ZZ Resection of Right Kidney, Open Approach (ICD-10-PCS; 2016-05-21)
DX: N28.89 Other specified disorders of kidney and ureter (principal); F17.210 Nicotine dependence, cigarettes, uncomplicated; R31.0 Gross hematuria; Z80.41 Family history of malignant neoplasm of ovary
CPT/HCPCS: 71020; 74183; 80048; 83735; 84703; 85025; 85027; 86850; 86900; 86901; 86923; 87086; 88307; A9577; C2617; J0131; J0330; J0690; J1100; J1170; J1650; J1885; J1940; J2250; J2270; J2405; J3010; J3480

== ENCOUNTER 2016-10-11 08:20 | Emergency (ER) | payer OTHER ==
[~2016-10-11] VITALS: Ht 177.8 cm; Wt 93.0 kg
--- NOTE | ~2016-10-11 | CR63 ---
[facility] A Service of [facility] RADIOLOGY TEXT RESULTS PATIENT: JOSE LOCATION: [facility] : 73 UNIT #: [id number] AGE: [address]: Jami Webber APRN SEX: F ORDER DR: [id number] [facility] [address] [place], [place] [address] [id number] E MR#: [id number] Acc #: [id number] NAME: JOSEJune. : 1975 SEX: F STUDY DATE/TIME: 10/11/2016 9:18 UNIT: [facility] ROOM: STUDY DESCRIPTION: CR Chest 2 View Attending Physician: Jami Webber A.P.R.N. Ordering Physician: Ed Doctor [id number] [facility] Primary Care Physician: Primary Care Physician No MEDICAL IMAGING REPORT This report is preliminary unless electronic signature is present EXAM Chest two views. COMPARISON Chest two views 05/06/2016 HISTORY Fever, chest pain and shortness of air for a day. FINDINGS Two views of the chest were obtained. PA and lateral examination of the chest upright shows a good expansion of the parenchyma with a normal distribution of the pulmonary vascularity. There is no indication of congestion, effusion, infiltrate, tumor, or nodular density. The pleural reflections and diaphragmatic contours are normal. The cardiac silhouette and mediastinal anatomy is within normal limits. IMPRESSION Normal chest. Dictated by... Nils White M.D. THIS IS AN ELECTRONICALLY VERIFIED REPORT Nils White M.D. at 10/11/2016 4:30 PM CPR/dj [facility] A Service [facility] RADIOLOGY TEXT RESULTS PATIENT: JOSE LOCATION: [facility] : 73 UNIT #: [id number] AGE: [address]: Jami Webber APRN SEX: F ORDER DR: TD: 10/11/2016 13:21 JOB #: [id number] MEDICAL IMAGING REPORT Page 1 of 1 COPY
--- NOTE | ~2016-10-11 | EKG ---
PATIENT: JOSEJune UNIT #: [id number] Ventricular Rate: 60 BPM Atrial Rate: 60 BPM P-R Interval: 194 ms QRS Duration: 70 ms Q-T Interval: 370 ms QTC Calculation(Bezet): 370 ms P [place]: 56 degrees Calculated R [place]: 75 degrees Calculated T [place]: 17 degrees Diagnosis Line: Normal sinus rhythm Diagnosis Line: Normal ECG Diagnosis Line: When compared with ECG of 18-APR-2016 10:18, Diagnosis Line: No significant change was found Diagnosis Line: Confirmed by AIDEN HART MD ([id number]) on Diagnosis Line: 10/11/2016 2:46:35 PM INTERPRETING MD: HAILEY CHERY
[~2016-10-11 08:20] MED LIST changes: +DOCUSATE SODIU100 MG PO; +GARCINIA CAMBO1 EACH PO; +HYDROCODON-ACE1 EAC7 PO; +IBUPROFEN800 MG PO; +MORGIDOX100 MG PO; +ONDANSETRON ODT4 MG SL
[2016-10-11 09:17] LABS: BASOPHIL# 0.1 X10e3 (0-0.3); BASOPHIL% 1.2 % (0-2.5); EOSINOPHIL# 0.3 X10e3 (0-0.7); EOSINOPHIL% 4.8 % (0.0-7.0); HEMATOCRIT 37.7 % (35.0-45.0); HEMOGLOBIN 12.9 gm/dL (12.0-16.0); LYMPHOCYTE# 1.2 X10e3 (1.0-3.5); LYMPHOCYTE% 16.5 % (17.0-45.0); MEAN CELL VOLUME 89.4 FL (83-96); MEAN CORPUSCULAR HEMOGLOBIN 30.5 PG (28-34); MEAN CORPUSCULAR HGB CONC 34.1 g/dL (30-36); MEAN PLATELET VOLUME 7.6 FL (6.5-11.5); MONOCYTE# 0.8 X10e3 (0-1.0); MONOCYTE% 10.4 % (3.0-12.0); NEUTROPHIL# 4.9 X10e3 (1.5-7.1); NEUTROPHIL% 67.1 % (40-75); PLATELET COUNT 363 X10e3 (140-420); RED BLOOD COUNT 4.22 X10e (3.90-5.30); RED CELL DISTRIBUTION WIDTH 13.8 % (11.0-15.5); WHITE BLOOD COUNT 7.3 X10e3 (4.0-10.5)
[2016-10-11 09:20] LABS: DIFF IND NO
[2016-10-11 09:24] LABS: POC - CKMB 1.1 ng/mL (0.0-7.9); POC - TROPONIN <0.05 ng/mL (<=0.05)
[2016-10-11 09:36] LABS: BUN/CREATININE RATIO 8.33; CREATININE SERUM 1.2 mg/dL (0.6-1.4); POTASSIUM 4.2 mmol/L (3.5-5.1)
== END 2016-10-11 10:15 | disposition home or self-care (01) ==
LOC: CED 08:20
PROVIDERS: Nurse Practitioner
DX: J02.9 Acute pharyngitis, unspecified (principal); Z79.899 Other long term (current) drug therapy
CPT/HCPCS: 71020; 80048; 82553; 84484; 85025; 87651; 93005; 99285